=== PATIENT | female | born 1990 | race Caucasian/White ===

== ENCOUNTER 2017-01-25 13:12 | Emergency (ER) | payer MEDICAID, OTHER ==
[~2017-01-25] VITALS: Ht 157.5 cm; Wt 78.0 kg
[2017-01-25 13:23] VITALS: Ht 157.5 cm; Wt 78.0 kg
[2017-01-25] MEDS ORDERED: ACETAMINOPHEN 325 MG TAB PO STA (15:00)
[2017-01-25] MEDS ORDERED: SOD CHLORIDE 0.9% 1,000 ML IV STA (15:00)
[2017-01-25] MEDS ORDERED: ONDANSETRON 4 MG INJ IV STA (15:00)
--- NOTE | 2017-01-25 15:15 | ERD ---
ER Documentation Chief Complaint Date/Time DATE: 01/25/17 TIME: 15:06 Chief Complaint 12 WEEKS WITH VOMITING HPI This is a 26-year-old female 26-year-old female presenting to the emergency department for headache, abdominal pain, vomiting and diarrhea while . Patient states she believes she is about 12 weeks and states her last menstrual period was either September/October 2016. Patient unsure of exact date of her last menstrual period. Patient states she has had severe nausea and vomiting so far during her entire . Patient is a A0. Patient has had 2 episodes of nonbloody nonbilious emesis today and states she has days where she vomits "all day." Patient states she also had several episodes of nonbloody diarrhea today. No melena. Patient states she is having periumbilical abdominal pain. No epigastric or upper abdominal pain. Patient states last week she had 2 episodes of bloody emesis. No copious amounts of bleeding. No current bloody emesis. Patient states she went to her [facility] Patient is unsure of her [facility]. Patient is also having a headache rating pain 10/10. States she believes this headache feels like a "migraine." Did not take anything for pain. States she has had these migraines before during her menstrual cycle. Denies dysuria or hematuria. Patient states she has urinary frequency. ROS All systems reviewed and are negative except as per history of present illness. Medications Home Meds Active Scripts Acetaminophen* (Tylenol*) 325 Mg Tablet, 2 TAB PO Q6 Y for PAIN AND OR ELEVATED TEMP, #20 TAB Prov:REN CHILDS NP 01/25/17 Ondansetron Hcl* (Zofran*) 4 Mg Tablet, 4 MG PO Q6H for NAUSEA AND/OR VOMITING, #10 TAB Prov:REN CHILDS NP 01/25/17 PMhx/Soc Medical and Surgical Hx: pt denies Surgical Hx Hx Cardiac Disorders: Yes (HX OF HYPOKALEMIA ) Hx Alcohol Use: No Hx Substance Use: No Hx Tobacco Use: No Smoking Status: Never smoker Physical Exam Vitals Vital Signs Date Time Temp Pulse Resp B/P Pulse Ox O2 Delivery O2 Flow Rate FiO2 01/25/17 17:20 89 20 122/71 99 Room Air 01/25/17 13:23 98.1 92 18 129/74 99 Physical Exam Const: No acute distress, alert Head: Atraumatic Eyes: Normal Conjunctiva ENT: Normal External Ears, Nose and Mouth. Neck: Full range of motion..~ No meningismus. Resp: Clear to auscultation bilaterally. No wheezing, rhonchi or crackles. Cardio: Regular rate and rhythm, no murmurs Abd: Soft, non tender, non distended. Normal bowel sounds Skin: No petechiae or rashes Back: No midline or flank tenderness. No CVA tenderness Ext: No cyanosis, or edema Neur: Awake and alert Psych: Normal Mood and Affect Result Diagram: 01/25/17 1545 01/25/17 1545 Results 24 hrs Laboratory Tests Test 01/25/17 15:45 01/25/17 16:45 White Blood Count 12.410^3/ul Red Blood Count 4.1210^6/ul Hemoglobin 12.6g/dl Hematocrit 36.6% Mean Corpuscular Volume 88.8fl Mean Corpuscular Hemoglobin 30.6pg Mean Corpuscular Hemoglobin Concent 34.4g/dl Red Cell Distribution Width 13.0% Platelet Count 54290^3/UL Mean Platelet Volume 9.2fl Neutrophils % 73.6% Lymphocytes % 19.0% Monocytes % 5.2% Eosinophils % 1.4% Basophils % 0.4% Nucleated Red Blood Cells % 0.0/100WBC Neutrophils # 9.110^3/ul Lymphocytes # 2.410^3/ul Monocytes # 0.610^3/ul Eosinophils # 0.210^3/ul Basophils # 0.110^3/ul Nucleated Red Blood Cells # 0.010^3/ul Sodium Level 133mmol/L Potassium Level 4.1mmol/L Chloride Level 100mmol/L Carbon Dioxide Level 26mmol/L Anion Gap 11 Blood Urea Nitrogen 5mg/dl Creatinine 0.54mg/dl Glucose Level 82mg/dl Calcium Level 9.8mg/dl Total Bilirubin 0.1mg/dl Direct Bilirubin 0.00mg/dl Indirect Bilirubin 0.1mg/dl Aspartate Amino Transf (AST/SGOT) 18IU/L Alanine Aminotransferase (ALT/SGPT) 29IU/L Alkaline Phosphatase 59IU/L Total Protein 8.0g/dl Albumin 4.7g/dl Globulin 3.30g/dl Albumin/Globulin Ratio 1.42 Beta HCG, Quantitative 968397.0mIU/ml Bedside Urine pH (LAB) 7.0 Bedside Urine Protein (LAB) Negative Bedside Urine Glucose (UA) Negative Bedside Urine Ketones (LAB) Negative Bedside Urine Blood Negative Bedside Urine Nitrite (LAB) Negative Bedside Urine Leukocyte Esterase (L Negative Current Medications Medications (Trade) Dose Ordered Sig/[place] Route PRN Reason Start Time Stop Time Status Last Admin Dose Admin Sodium Chloride (NS) 1,000 ml @ 1,000 mls/hr Q1H STAT IV 01/25/17 15:00 01/25/17 15:59 DC 01/25/17 15:44 Acetaminophen (Tylenol Tab) 650 mg ONCE STAT PO 01/25/17 15:00 01/25/17 15:04 DC 01/25/17 15:43 Ondansetron HCl (Zofran Inj) 4 mg ONCE STAT IV 01/25/17 15:00 01/25/17 15:04 DC 01/25/17 15:43 Procedures/[place] [id number] Radiology Main Line: [phone] DIAGNOSTIC IMAGING REPORT Patient: FREDY MORAN : 1990 Age: 26 Sex: F MR #: [id number] DOS: 01/25/17 1500 Ordering MD: REN CHILDS NP Location: [facility] Room/Bed: PROCEDURE: US OB. CLINICAL INDICATION: Vaginal bleeding TECHNIQUE: Transabdominal views of the pelvis are available for review. COMPARISON: No prior studies are available for comparison. FINDINGS: There is a single intrauterine gestation with the crown-rump length measuring 6.0 cm and the gestational sac measuring 6 cm, corresponding to a gestational age of 12 weeks and 6 days. The heart rate is noted at 150 bpm. The ovaries are not seen. There is no free fluid. RPTAT: AA IMPRESSION: Single live intrauterine with an estimated gestational age of 12 weeks and 6 days, based on ultrasound measurements. CHASE based on ultrasound measurements is 08/03/2017. MDM: This is a 26-year-old female presenting to emergency department with nausea , vomiting, diarrhea, headache while . Patient states she has had vomiting throughout her entire . Patient developed diarrhea and headache for last 2 days. Patient believes she is 12 weeks however is unsure of her last menstrual period. Labs ordered and IV access obtained. Patient given Tylenol and Zofran. CBC shows no significant anemia or infection. Beta-hCG is 138,480.0. Patient is O+ and therefore no indication for RhoGam administration. OB ultrasound reviewed by radiologist as single live intrauterine with an estimated gestational age of 12 weeks and 6 days. Upon reassessment, patient states she feels significantly better. Denies headache. No nausea or vomiting. Vital signs remained stable. Differential diagnosis includes but not limited to ectopic , threatened , missed , normal , subchorionic hemorrhage , ruptured ovarian cyst, UTI or pyelonephritis. Patient is appropriate for outpatient management will be given prescription for Tylenol and Zofran. Instructed patient to follow-up with [facility] in the next 2- 3 days for reassessment and additional management. Return to ED sooner for any high fever, chest pain, difficulty breathing, shortness breath, wheezing, vomiting, diarrhea, abdominal pain or any new or worsening symptoms. Patient verbalizes understanding. All questions answered at discharge. Departure Diagnosis: Primary Impression: Nausea, vomiting, and diarrhea Condition: Stable REN CHILDS NP Jan 25, 2017 15:15
--- NOTE | 2017-01-25 15:44 | RADRPT ---
PROCEDURE: US OB. CLINICAL INDICATION: Vaginal bleeding TECHNIQUE: Transabdominal views of the pelvis are available for review. COMPARISON: No prior studies are available for comparison. FINDINGS: There is a single intrauterine gestation with the crown-rump length measuring 6.0 cm and the gestati onal sac measuring 6 cm, corresponding to a gestational age of 12 weeks and 6 days. The heart rate is noted at 150 bpm. The ovaries are not seen. There is no free fluid. RPTAT: AA IMPRESSION: Single live intrauterine with an estimated gestational age of 12 weeks and 6 days, based o n ultrasound measurements. CHASE based on ultrasound measurements is 08/03/2017. .Junior Cole MD, MD Date Time Electronically viewed and signed by .Junior Cole MD, on 01/25/2017 15:44 .S/
[2017-01-25 15:49] LABS: ADD SCAN DIFF NO
[2017-01-25 15:51] LABS: BASOPHIL # 0.1 10^3/ul (0.0-0.1); BASOPHILS % 0.4 % (0.0-2.0); EOSINOPHILS # 0.2 10^3/ul (0.0-0.5); EOSINOPHILS % 1.4 % (0.0-7.0); HEMATOCRIT 36.6 % (37.0-47.0); HEMOGLOBIN 12.6 g/dl (12.0-16.0); LYMPHOCYTES # 2.4 10^3/ul (0.8-2.9); MEAN CORPUSCULAR HEMOGLOBIN 30.6 pg (29.0-33.0); MEAN CORPUSCULAR HGB CONC 34.4 g/dl (32.0-37.0); MEAN CORPUSCULAR VOLUME 88.8 fl (82.0-101.0); MEAN PLATELET VOLUME 9.2 fl (7.4-10.4); MONOCYTE # 0.6 10^3/ul (0.3-0.9); MONOCYTES % 5.2 % (0.0-11.0); NEUTROPHIL # 9.1 10^3/ul (1.6-7.5); NEUTROPHILS % 73.6 % (39.0-77.0); PLATELET COUNT 374 10^3/UL (140-415); RED BLOOD COUNT 4.12 10^6/ul (4.20-5.40); WHITE BLOOD COUNT 12.4 10^3/ul (4.8-10.8)
[2017-01-25 16:10] LABS: ALBUMIN 4.7 g/dl (3.3-4.9); ALBUMIN/GLOBULIN RATIO 1.42; BILIRUBIN,INDIRECT 0.1 mg/dl (0-1.1); BILIRUBIN,TOTAL 0.1 mg/dl (0.2-1.3); CALCIUM 9.8 mg/dl (8.4-10.2); CREATININE 0.54 mg/dl (0.44-1.00); POTASSIUM 4.1 mmol/L (3.5-5.1)
[2017-01-25 16:40] LABS: URINE BLOOD (Dip) POC Negative (NEGATIVE)
[2017-01-25] MEDS ORDERED: ACET325T33 PO (17:09)
[2017-01-25] MEDS ORDERED: ONDA4TAB8 PO (17:09)
[2017-01-25 17:20] VITALS: BP 122/71; PULSE 89; RESP 20
== END 2017-01-25 17:20 | disposition home or self-care (01) ==
LOC: FTE 13:12
DX: O21.9 Vomiting of pregnancy, unspecified (principal); O99.89 Other specified diseases and conditions complicating pregnancy, childbirth and the puerperium; R19.7 Diarrhea, unspecified; Z3A.12 12 weeks gestation of pregnancy
CPT/HCPCS: 36415; 76801; 80053; 81003; 84702; 85025; 86900; 86901; 96374; J2405; J7030; Z7502; Z7610